=== PATIENT | male | born 1940 | race Two or more races ===

== ENCOUNTER 2022-08-16 17:27 | Emergency (ER) | payer MEDICARE ==
[~2022-08-16] VITALS: Ht 177.8 cm; Wt 83.9 kg
--- NOTE | 2022-08-16 18:20 | NUR ---
BIB SON, C/O SORETHROAT SINCE FRIDAY, TESTED POSITIVE TODAY DENIES SOB, AFEBRILE PODIATRIST ASSISTANT. AMBULATORY, PLACED ON BED 5 WITH THE , AAOX4, BREATHING EVEN AND UNLABORED.
--- NOTE | 2022-08-16 19:54 | NUR ---
SWAB FOR RAPID INFLUENZA AND NOVEL HUTCHINS SENT TO LAB
--- NOTE | 2022-08-16 21:25 | NUR ---
Patient discharged to home in stable condition. Written and verbal after care instructions given. Patient verbalizes understanding of instruction.
[2022-08-16 21:28] VITALS: BP 135/65
== END 2022-08-16 21:25 | disposition home or self-care (01) ==
LOC: ER 17:33
DX: U07.1 COVID-19 (principal); E11.9 Type 2 diabetes mellitus without complications
CPT/HCPCS: C9803; U0003

== ENCOUNTER 2023-05-28 17:01 | Emergency (ER) | payer MEDICARE ==
[~2023-05-28] VITALS: Ht 177.8 cm; Wt 83.9 kg
[2023-05-28 19:29] VITALS: BP 128/65; TEMP 98.1; O2SAT 98
== END 2023-05-28 19:30 | disposition home or self-care (01) ==
LOC: ER 17:03
DX: S09.8XXA Other specified injuries of head, initial encounter (principal); E11.9 Type 2 diabetes mellitus without complications; W18.39XA Other fall on same level, initial encounter; Y93.89 Activity, other specified; Y92.89 Other specified places as the place of occurrence of the external cause; Y99.8 Other external cause status
CPT/HCPCS: 70450-TC; 72125-TC

== ENCOUNTER 2024-02-19 19:37 | Emergency (ER) | payer MEDICARE ==
[~2024-02-19] VITALS: Ht 177.8 cm; Wt 90.7 kg
[2024-02-19 20:09] LABS: BASOPHILS % (AUTO) 0.7 % (0.0-2.0); EOSINOPHILS # (AUTO) 0.1 K/uL (0.0-0.7); EOSINOPHILS % (AUTO) 1.6 % (0.0-6.0); HEMATOCRIT 30 % (39-51); HEMOGLOBIN 10.2 g/dL (13.5-17.5); LYMPHOCYTES # (AUTO) 1.2 K/uL (0.8-4.8); LYMPHOCYTES % (AUTO) 18.7 % (20.0-44.0); MEAN CORPUSCULAR HEMOGLOBIN 30 PG (26.0-33.0); MEAN CORPUSCULAR HGB CONC 34 g/dl (31.0-36.0); MEAN CORPUSCULAR VOLUME 90 fL (80-96); MONOCYTES # (AUTO) 0.6 K/uL (0.1-1.30); MONOCYTES % (AUTO) 8.5 % (2.0-12.0); NEUTROPHILS # (AUTO) 4.5 K/uL (1.8-8.9); NEUTROPHILS % (AUTO) 70.5 % (43.0-81.0); PLATELET COUNT (AUTO) 117 K/uL (150-450); RED BLOOD CELL COUNT(AUTO) 3.36 MIL/uL (4.5-6.0); RED CELL DISTRIBUTION WIDTH 14.9 % (11.5-15.0); WHITE BLOOD COUNT (AUTO) 6.4 K/uL (4.3-11.0)
[2024-02-19 20:15] LABS: CALCIUM, SERUM 8.3 mg/dL (8.5-10.1); CARBON DIOXIDE 29 mmol/L (21-32); CHLORIDE 105 mmol/L (98-107); CREATININE 3.4 mg/dL (0.6-1.3); GLUCOSE 98 mg/dL (74-106); POTASSIUM 4.7 mmol/L (3.5-5.1); SODIUM SERUM 138 mmol/L (136-145); UREA NITROGEN, BLOOD 69 mg/dL (7-18)
[2024-02-19 20:51] VITALS: BP 132/64; TEMP 98; O2SAT 97
== END 2024-02-19 20:52 | disposition home or self-care (01) ==
LOC: ER 19:45
DX: I48.91 Unspecified atrial fibrillation (principal); I12.9 Hypertensive chronic kidney disease with stage 1 through stage 4 chronic kidney disease, or unspecified chronic kidney disease; E11.22 Type 2 diabetes mellitus with diabetic chronic kidney disease; N18.9 Chronic kidney disease, unspecified; D63.1 Anemia in chronic kidney disease
CPT/HCPCS: 36415; 71045-TC; 80048-TC; 84484-TC; 85025-TC

== ENCOUNTER 2024-06-17 06:15 | Inpatient (IN) | payer MEDICARE ==
[~2024-06-17] VITALS: Ht 177.8 cm; Wt 88.0 kg
[2024-06-17] MEDS: IV NS 0.9% 500 ML BAG IV ONE (06:34)
[2024-06-17 07:10] LABS: CARBON DIOXIDE 26 mmol/L (21-32); CHLORIDE 106 mmol/L (98-107); CREATININE 2.9 mg/dL (0.6-1.3); GLUCOSE 130 mg/dL (74-106); POTASSIUM 3.9 mmol/L (3.5-5.1); SODIUM SERUM 140 mmol/L (136-145); UREA NITROGEN, BLOOD 67 mg/dL (7-18)
[2024-06-17 07:13] LABS: BASOPHILS % (AUTO) 0.7 % (0.0-2.0); EOSINOPHILS # (AUTO) 0.2 K/uL (0.0-0.7); EOSINOPHILS % (AUTO) 2.7 % (0.0-6.0); HEMATOCRIT 33 % (39-51); LYMPHOCYTES # (AUTO) 1.7 K/uL (0.8-4.8); LYMPHOCYTES % (AUTO) 22.7 % (20.0-44.0); MEAN CORPUSCULAR HEMOGLOBIN 31 PG (26.0-33.0); MEAN CORPUSCULAR HGB CONC 34 g/dl (31.0-36.0); MEAN CORPUSCULAR VOLUME 93 fL (80-96); MONOCYTES # (AUTO) 0.6 K/uL (0.1-1.30); MONOCYTES % (AUTO) 7.8 % (2.0-12.0); NEUTROPHILS # (AUTO) 4.8 K/uL (1.8-8.9); NEUTROPHILS % (AUTO) 66.1 % (43.0-81.0); PLATELET COUNT (AUTO) 122 K/uL (150-450); RED BLOOD CELL COUNT(AUTO) 3.49 MIL/uL (4.5-6.0); WHITE BLOOD COUNT (AUTO) 7.3 K/uL (4.3-11.0)
[2024-06-17 07:19] LABS: ALANINE AMINOTRANSFERASE 19 U/L (12-78); ALBUMIN 3.2 g/dL (3.4-5.0); ALKALINE PHOSPHATASE 68 U/L (46-116); ASPARTATE AMINOTRANSFERASE 19 U/L (15-37); BILIRUBIN,DIRECT 0.1 mg/dL (0.0-0.2); BILIRUBIN,TOTAL 0.3 mg/dL (0.2-1.0); TOTAL PROTEIN, SERUM 6.8 g/dL (6.4-8.2)
[2024-06-17] MEDS ORDERED: FURO-145 PO (08:09)
[2024-06-17] MEDS ORDERED: SITA50TA PO (08:09)
[2024-06-17] MEDS ORDERED: CHOL100062 PO (08:09)
[2024-06-17] MEDS ORDERED: OXYB10TA30 PO (08:09)
[2024-06-17] MEDS ORDERED: LEVO50TA PO (08:09)
[2024-06-17] MEDS ORDERED: ROSU20TA2 PO (08:09)
[2024-06-17] MEDS ORDERED: MULT-1169 PO (08:09)
[2024-06-17] MEDS ORDERED: SERT25TA PO (08:09)
[2024-06-17] MEDS ORDERED: ASPI-1169 PO (08:09)
[2024-06-17] MEDS ORDERED: KRIL1CAP21 PO (08:09)
[2024-06-17] MEDS ORDERED: TAMS-12 PO (08:09)
[2024-06-17 11:00] VITALS: BP 111/72; TEMP 97.3; O2SAT 96
[2024-06-17] MEDS ORDERED: ONDANSETRON HCL/PF 4 MG/2 ML VIAL IVP PRN (11:00)
[2024-06-17] MEDS ORDERED: ZOLPIDEM TARTRATE 5 MG TABLET PO PRN (11:00)
[2024-06-17] MEDS ORDERED: Z GUARD REMEDY 4 OZ OINT TP PRN (11:00)
[2024-06-17] MEDS ORDERED: ACETAMINOPHEN 325 MG TABLET PO PRN (11:00)
[2024-06-17] MEDS ORDERED: MAG HYDROX/AL HYDROX/SIMETH 30 ML UDC PO PRN (11:00)
[2024-06-17] MEDS ORDERED: MAGNESIUM HYDROXIDE 30 ML UDC PO PRN (11:00)
[2024-06-17] MEDS: IV NS 0.9% 1,000 ML IV PRN (12:36)
[2024-06-17] MEDS: ENOXAPARIN SODIUM 30 MG/0.3 ML DISP.SYRIN SQ SCH (12:38)
[2024-06-17 16:00] VITALS: BP 142/61; TEMP 97.5; O2SAT 96
[2024-06-17] MEDS: ATORVASTATIN 40 MG TABLET PO SCH (17:41)
[2024-06-17] MEDS: OXYBUTYNIN CHLORIDE ER 5 MG TAB PO SCH (17:41)
[2024-06-17] MEDS: TAMSULOSIN 0.4 MG CAP.SR.24H PO SCH (17:41)
[2024-06-17 18:57] LABS: IRON, SERUM 56 ug/dl (50-175); TOTAL IRON BINDING CAPACITY 217 ug/dl (250-450)
[2024-06-17 19:11] LABS: CHOLESTEROL 104 mg/dL (<200); FERRITIN 164 ng/mL (8-388); HDL CHOLESTEROL 59 mg/dL (40-60); LDL 30 mg/dL (0-99); TRIGLYCERIDES 85 mg/dL (30-150)
[2024-06-17 20:00] VITALS: BP 140/65; TEMP 98.1; O2SAT 97
[2024-06-18] VITALS: BP 134/60; TEMP 97.9; O2SAT 93
[2024-06-18 02:24] LABS: APPEARANCE,URINE CLEAR (CLEAR); BILIRUBIN,URINE NEGATIVE (NEGATIVE); BLOOD, URINE TRACE-INTA Ery/uL (NEGATIVE); COLOR,URINE YELLOW (YELLOW); KETONES,URINE NEGATIVE (NEGATIVE); LEUKOCYTE ESTERASE ,URINE NEGATIVE (NEGATIVE); NITRITE, URINE NEGATIVE (NEGATIVE); PROTEIN,URINE 1+ mg/dl (NEGATIVE); UGLUCOSE NEGATIVE (NEGATIVE); UROBILINOGEN,URINE 0.2 EU/dL (0.2)
[2024-06-18 03:01] LABS: ADD URINE CULTURE NO; BACTERIA,URINE Rare /HPF (None Seen); SQUAMOUS EPITHELIAL CELL,UR Few /HPF (None Seen); WBC,URINE 0-2 /HPF (0-3)
[2024-06-18 04:00] VITALS: BP_SYST 113; BP_SYST 138; BP_SYST 91; BP_DIAS 45; BP_DIAS 56; BP_DIAS 65; TEMP 97.8; O2SAT 95
[2024-06-18 06:30] LABS: BASOPHILS % (AUTO) 0.3 % (0.0-2.0); EOSINOPHILS # (AUTO) 0.1 K/uL (0.0-0.7); EOSINOPHILS % (AUTO) 1.4 % (0.0-6.0); HEMATOCRIT 28 % (39-51); HEMOGLOBIN 9.9 g/dL (13.5-17.5); LYMPHOCYTES # (AUTO) 1.3 K/uL (0.8-4.8); LYMPHOCYTES % (AUTO) 14.3 % (20.0-44.0); MEAN CORPUSCULAR HEMOGLOBIN 32 PG (26.0-33.0); MEAN CORPUSCULAR HGB CONC 35 g/dl (31.0-36.0); MEAN CORPUSCULAR VOLUME 91 fL (80-96); MONOCYTES # (AUTO) 0.6 K/uL (0.1-1.30); NEUTROPHILS # (AUTO) 6.8 K/uL (1.8-8.9); PLATELET COUNT (AUTO) 113 K/uL (150-450); RED BLOOD CELL COUNT(AUTO) 3.12 MIL/uL (4.5-6.0); WHITE BLOOD COUNT (AUTO) 8.9 K/uL (4.3-11.0)
[2024-06-18 06:45] LABS: ALANINE AMINOTRANSFERASE 16 U/L (12-78); ALBUMIN 2.8 g/dL (3.4-5.0); ALKALINE PHOSPHATASE 60 U/L (46-116); ASPARTATE AMINOTRANSFERASE 16 U/L (15-37); BILIRUBIN,TOTAL 0.3 mg/dL (0.2-1.0); CALCIUM, SERUM 8.5 mg/dL (8.5-10.1); CARBON DIOXIDE 26 mmol/L (21-32); CHLORIDE 111 mmol/L (98-107); CREATININE 2.8 mg/dL (0.6-1.3); GLUCOSE 117 mg/dL (74-106); MAGNESIUM 1.7 mg/dL (1.8-2.4); PHOSPHORUS 3.2 mg/dL (2.5-4.9); SODIUM SERUM 143 mmol/L (136-145); TOTAL PROTEIN, SERUM 6.2 g/dL (6.4-8.2); UREA NITROGEN, BLOOD 66 mg/dL (7-18)
[2024-06-18] MEDS: LEVOTHYROXINE SODIUM 50 MCG TABLET PO SCH (06:51)
[2024-06-18] MEDS: PANTOPRAZOLE 40 MG TABLET.DR PO SCH (06:51)
[2024-06-18 07:30] VITALS: BP 156/70; TEMP 98.4; O2SAT 94
[2024-06-18] MEDS: LINAGLIPTIN 5 MG TABLET PO SCH (08:15)
[2024-06-18] MEDS: SERTRALINE HCL 50 MG TABLET PO SCH (08:15)
[2024-06-18] MEDS: ASPIRIN 81 MG TAB.CHEW PO SCH (08:15)
[2024-06-18] MEDS: MAGNESIUM OXIDE 400 MG TABLET PO ONE (09:49)
[2024-06-18] MEDS: IV NS 0.9% 1,000 ML IV PRN (10:26)
[2024-06-18 16:00] VITALS: BP_SYST 127; BP_SYST 135; BP_SYST 154; BP_SYST 95; BP_DIAS 49; BP_DIAS 61; BP_DIAS 62; BP_DIAS 63; TEMP 97.5; TEMP 97.8; O2SAT 95
[2024-06-18 20:00] VITALS: BP 137/67; TEMP 98.8; O2SAT 96
[2024-06-18 22:20] LABS: CREATININE, URINE 96.6 MG/DL (30.0-125.0)
[2024-06-19 06:00] VITALS: BP_SYST 103; BP_SYST 106; BP_SYST 159; BP_DIAS 48; BP_DIAS 52; BP_DIAS 71
[2024-06-19 07:19] LABS: BASOPHILS % (AUTO) 0.6 % (0.0-2.0); EOSINOPHILS # (AUTO) 0.2 K/uL (0.0-0.7); EOSINOPHILS % (AUTO) 2.9 % (0.0-6.0); HEMATOCRIT 29 % (39-51); HEMOGLOBIN 9.9 g/dL (13.5-17.5); LYMPHOCYTES # (AUTO) 1.4 K/uL (0.8-4.8); LYMPHOCYTES % (AUTO) 17.1 % (20.0-44.0); MEAN CORPUSCULAR HEMOGLOBIN 32 PG (26.0-33.0); MEAN CORPUSCULAR HGB CONC 34 g/dl (31.0-36.0); MEAN CORPUSCULAR VOLUME 92 fL (80-96); MONOCYTES # (AUTO) 0.7 K/uL (0.1-1.30); MONOCYTES % (AUTO) 7.8 % (2.0-12.0); NEUTROPHILS % (AUTO) 71.6 % (43.0-81.0); PLATELET COUNT (AUTO) 117 K/uL (150-450); RED BLOOD CELL COUNT(AUTO) 3.14 MIL/uL (4.5-6.0); RED CELL DISTRIBUTION WIDTH 13.7 % (11.5-15.0); WHITE BLOOD COUNT (AUTO) 8.4 K/uL (4.3-11.0)
[2024-06-19 07:41] LABS: ALANINE AMINOTRANSFERASE 14 U/L (12-78); ALBUMIN 2.8 g/dL (3.4-5.0); ALKALINE PHOSPHATASE 61 U/L (46-116); ASPARTATE AMINOTRANSFERASE 18 U/L (15-37); BILIRUBIN,TOTAL 0.4 mg/dL (0.2-1.0); CALCIUM, SERUM 8.5 mg/dL (8.5-10.1); CARBON DIOXIDE 28 mmol/L (21-32); CHLORIDE 112 mmol/L (98-107); CREATININE 2.6 mg/dL (0.6-1.3); GLUCOSE 91 mg/dL (74-106); MAGNESIUM 1.7 mg/dL (1.8-2.4); PHOSPHORUS 3.2 mg/dL (2.5-4.9); POTASSIUM 4.2 mmol/L (3.5-5.1); SODIUM SERUM 144 mmol/L (136-145); TOTAL PROTEIN, SERUM 6.3 g/dL (6.4-8.2); UREA NITROGEN, BLOOD 56 mg/dL (7-18)
[2024-06-19 08:00] VITALS: BP 151/68; TEMP 98.6; O2SAT 96
[2024-06-19] MEDS: IV NS 0.9% 1,000 ML IV PRN (09:54)
[2024-06-19] MEDS ORDERED: Magnesium 1GM/D5W 100ML PREMIX PIGGYBACK IV ONE (11:00)
[2024-06-19] MEDS: Magnesium 1GM/D5W 100ML PREMIX 100 ML IV SCH (11:56)
[2024-06-19 16:00] VITALS: BP 149/66; TEMP 98.2; O2SAT 98
[2024-06-19 20:00] VITALS: BP 130/68; TEMP 98.1; O2SAT 96
[2024-06-20 06:00] VITALS: BP_SYST 142; BP_SYST 152; BP_SYST 98; BP_DIAS 51; BP_DIAS 62; BP_DIAS 68
[2024-06-20 06:15] LABS: BASOPHILS % (AUTO) 0.5 % (0.0-2.0); EOSINOPHILS # (AUTO) 0.3 K/uL (0.0-0.7); EOSINOPHILS % (AUTO) 3.5 % (0.0-6.0); HEMATOCRIT 28 % (39-51); HEMOGLOBIN 9.6 g/dL (13.5-17.5); LYMPHOCYTES # (AUTO) 1.4 K/uL (0.8-4.8); LYMPHOCYTES % (AUTO) 18.6 % (20.0-44.0); MEAN CORPUSCULAR HEMOGLOBIN 32 PG (26.0-33.0); MEAN CORPUSCULAR HGB CONC 35 g/dl (31.0-36.0); MEAN CORPUSCULAR VOLUME 91 fL (80-96); MONOCYTES # (AUTO) 0.5 K/uL (0.1-1.30); MONOCYTES % (AUTO) 6.6 % (2.0-12.0); NEUTROPHILS # (AUTO) 5.4 K/uL (1.8-8.9); NEUTROPHILS % (AUTO) 70.8 % (43.0-81.0); PLATELET COUNT (AUTO) 111 K/uL (150-450); RED BLOOD CELL COUNT(AUTO) 3.02 MIL/uL (4.5-6.0); WHITE BLOOD COUNT (AUTO) 7.6 K/uL (4.3-11.0)
[2024-06-20 06:31] LABS: CALCIUM, SERUM 8.3 mg/dL (8.5-10.1); CARBON DIOXIDE 24 mmol/L (21-32); CHLORIDE 114 mmol/L (98-107); CREATININE 2.3 mg/dL (0.6-1.3); GLUCOSE 98 mg/dL (74-106); MAGNESIUM 1.8 mg/dL (1.8-2.4); PHOSPHORUS 2.9 mg/dL (2.5-4.9); POTASSIUM 3.9 mmol/L (3.5-5.1); SODIUM SERUM 146 mmol/L (136-145); UREA NITROGEN, BLOOD 45 mg/dL (7-18)
[2024-06-20 08:23] VITALS: BP 156/80; TEMP 97.8; O2SAT 99
[2024-06-20] MEDS: MIDODRINE HCL (5MG) 5 MG TABLET PO SCH (09:01)
[2024-06-20 16:42] VITALS: BP 153/75; TEMP 98.1; O2SAT 97
[2024-06-20 20:11] VITALS: BP 129/60; TEMP 98.1; O2SAT 95
[2024-06-21 06:24] VITALS: BP_SYST 103; BP_SYST 118; BP_SYST 146; BP_DIAS 68; BP_DIAS 70; BP_DIAS 72
[2024-06-21 07:04] LABS: BASOPHILS % (AUTO) 0.7 % (0.0-2.0); EOSINOPHILS # (AUTO) 0.3 K/uL (0.0-0.7); EOSINOPHILS % (AUTO) 4.3 % (0.0-6.0); HEMATOCRIT 28 % (39-51); HEMOGLOBIN 9.4 g/dL (13.5-17.5); LYMPHOCYTES # (AUTO) 1.3 K/uL (0.8-4.8); LYMPHOCYTES % (AUTO) 17.7 % (20.0-44.0); MEAN CORPUSCULAR HEMOGLOBIN 31 PG (26.0-33.0); MEAN CORPUSCULAR HGB CONC 34 g/dl (31.0-36.0); MEAN CORPUSCULAR VOLUME 93 fL (80-96); MONOCYTES # (AUTO) 0.6 K/uL (0.1-1.30); MONOCYTES % (AUTO) 8.1 % (2.0-12.0); NEUTROPHILS # (AUTO) 4.9 K/uL (1.8-8.9); NEUTROPHILS % (AUTO) 69.2 % (43.0-81.0); PLATELET COUNT (AUTO) 115 K/uL (150-450); RED CELL DISTRIBUTION WIDTH 14.1 % (11.5-15.0); WHITE BLOOD COUNT (AUTO) 7.1 K/uL (4.3-11.0)
[2024-06-21 07:29] LABS: CALCIUM, SERUM 8.2 mg/dL (8.5-10.1); CARBON DIOXIDE 23 mmol/L (21-32); CHLORIDE 112 mmol/L (98-107); CREATININE 2.3 mg/dL (0.6-1.3); GLUCOSE 105 mg/dL (74-106); MAGNESIUM 1.8 mg/dL (1.8-2.4); POTASSIUM 4.1 mmol/L (3.5-5.1); SODIUM SERUM 144 mmol/L (136-145); UREA NITROGEN, BLOOD 47 mg/dL (7-18)
[2024-06-21 07:48] LABS: THYROID STIMULATING HORMONE 3.83 uIU/mL (0.358-3.74)
[2024-06-21 08:00] VITALS: BP 155/64; TEMP 98.7; O2SAT 96
[2024-06-21] MEDS ORDERED: MIDO5TAB4 PO (11:19)
[2024-06-21 16:00] VITALS: BP 127/61; TEMP 99; O2SAT 96
[2024-06-21 17:48] VITALS: BP 127/61
[2024-06-22 08:10] LABS: T3, FREE 1.7 pg/mL (2.0-4.4)
[2024-06-22 11:09] LABS: CORTISOL AM 10.2 ug/dL (6.2-19.4)
== END 2024-06-21 19:57 | disposition home or self-care (01) | DRG 640 ==
LOC: ER 06:26 → TELE 09:57 → MED 06-18 09:03
PROVIDERS: ADMIT Student in an Organized Health Care Education/Training Program; ATTEND Student in an Organized Health Care Education/Training Program
DX: E86.0 Dehydration (principal); N17.0 Acute kidney failure with tubular necrosis; E44.0 Moderate protein-calorie malnutrition; I13.0 Hypertensive heart and chronic kidney disease with heart failure and stage 1 through stage 4 chronic kidney disease, or unspecified chronic kidney disease; N18.4 Chronic kidney disease, stage 4 (severe); N17.9 Acute kidney failure, unspecified; I95.1 Orthostatic hypotension; E78.5 Hyperlipidemia, unspecified; D69.6 Thrombocytopenia, unspecified; E03.9 Hypothyroidism, unspecified; E11.22 Type 2 diabetes mellitus with diabetic chronic kidney disease; I50.9 Heart failure, unspecified; Z95.5 Presence of coronary angioplasty implant and graft; Z79.899 Other long term (current) drug therapy; Z79.82 Long term (current) use of aspirin; Z79.890 Hormone replacement therapy; Z79.84 Long term (current) use of oral hypoglycemic drugs; D64.9 Anemia, unspecified; N40.0 Benign prostatic hyperplasia without lower urinary tract symptoms; E83.42 Hypomagnesemia; M89.8X9 Other specified disorders of bone, unspecified site; I48.0 Paroxysmal atrial fibrillation; W19.XXXA Unspecified fall, initial encounter; Y92.9 Unspecified place or not applicable; Z79.4 Long term (current) use of insulin; Z88.0 Allergy status to penicillin; Z91.81 History of falling
CPT/HCPCS: 36415; 71045-TC; 76770-TC; 80048-TC; 80053-TC; 80061-TC; 80076-TC; 81001; 82533; 82570-TC; 82607-TC; 82728-TC; 82962-TC; 83540-TC; 83735-TC; 83880; 84100-TC; 84300-TC; 84439-TC; 84443-TC; 84481; 84484-TC; 85025-TC; 93307-TC; 97112-TC; 97116-TC; 97530-TC; A4223; G0378; J1650; J3475; J7030

== ENCOUNTER 2024-07-18 10:16 | Emergency (ER) | payer MEDICARE ==
[~2024-07-18] VITALS: Ht 177.8 cm; Wt 80.4 kg
[~2024-07-18 10:16] MED LIST: ASPI-1169 PO; CHOL100062 PO; KRIL1CAP21 PO; LEVO50TA PO; MIDO5TAB4 PO; MULT-1169 PO; OXYB10TA30 PO; ROSU20TA2 PO; SERT25TA PO; SITA50TA PO; TAMS-12 PO
[2024-07-18 10:59] LABS: BASOPHILS % (AUTO) 0.6 % (0.0-2.0); EOSINOPHILS # (AUTO) 0.1 K/uL (0.0-0.7); EOSINOPHILS % (AUTO) 2.2 % (0.0-6.0); HEMATOCRIT 29 % (39-51); HEMOGLOBIN 10.2 g/dL (13.5-17.5); LYMPHOCYTES # (AUTO) 1.3 K/uL (0.8-4.8); MEAN CORPUSCULAR HEMOGLOBIN 32 PG (26.0-33.0); MEAN CORPUSCULAR HGB CONC 35 g/dl (31.0-36.0); MEAN CORPUSCULAR VOLUME 91 fL (80-96); MONOCYTES # (AUTO) 0.5 K/uL (0.1-1.30); NEUTROPHILS # (AUTO) 4.2 K/uL (1.8-8.9); NEUTROPHILS % (AUTO) 68.2 % (43.0-81.0); PLATELET COUNT (AUTO) 111 K/uL (150-450); RED BLOOD CELL COUNT(AUTO) 3.22 MIL/uL (4.5-6.0); RED CELL DISTRIBUTION WIDTH 13.9 % (11.5-15.0); WHITE BLOOD COUNT (AUTO) 6.2 K/uL (4.3-11.0)
[2024-07-18 11:11] LABS: INR 1.06 (0.91-1.10); PARTIAL THROMBOPLASTIN TIME 24.4 SEC (24.3-34.3); PROTHROMBIN TIME 11.2 SECS (9.2-11.1)
[2024-07-18 11:15] LABS: ALANINE AMINOTRANSFERASE 19 U/L (12-78); ALBUMIN 3.1 g/dL (3.4-5.0); ALKALINE PHOSPHATASE 57 U/L (46-116); ASPARTATE AMINOTRANSFERASE 14 U/L (15-37); BILIRUBIN,DIRECT 0.1 mg/dL (0.0-0.2); BILIRUBIN,TOTAL 0.4 mg/dL (0.2-1.0); CARBON DIOXIDE 31 mmol/L (21-32); CHLORIDE 106 mmol/L (98-107); CREATININE 2.7 mg/dL (0.6-1.3); GLUCOSE 105 mg/dL (74-106); POTASSIUM 3.9 mmol/L (3.5-5.1); SODIUM SERUM 143 mmol/L (136-145); TOTAL PROTEIN, SERUM 6.6 g/dL (6.4-8.2); UREA NITROGEN, BLOOD 49 mg/dL (7-18)
[2024-07-18] MEDS: IV NS 0.9% 500 ML IV ONE (12:26)
[2024-07-18 12:53] VITALS: BP 168/65; TEMP 98.4; O2SAT 98
== END 2024-07-18 12:58 | disposition home or self-care (01) ==
LOC: ER 10:23
DX: R55 Syncope and collapse (principal); I12.9 Hypertensive chronic kidney disease with stage 1 through stage 4 chronic kidney disease, or unspecified chronic kidney disease; N18.9 Chronic kidney disease, unspecified; E11.22 Type 2 diabetes mellitus with diabetic chronic kidney disease; E03.9 Hypothyroidism, unspecified; E78.5 Hyperlipidemia, unspecified; Z79.84 Long term (current) use of oral hypoglycemic drugs; Z79.82 Long term (current) use of aspirin; Z79.899 Other long term (current) drug therapy; Z86.73 Personal history of transient ischemic attack (TIA), and cerebral infarction without residual deficits; Z95.5 Presence of coronary angioplasty implant and graft; Z88.0 Allergy status to penicillin; W18.30XA Fall on same level, unspecified, initial encounter
CPT/HCPCS: 36415; 70450-TC; 71045-TC; 80048-TC; 80076-TC; 85025-TC; 85730-TC; J7030